=== PATIENT | male | born 1950 | race Caucasian/White ===

== ENCOUNTER 2016-06-06 08:28 | Emergency (ER) | payer MEDICARE, OTHER ==
[~2016-06-06] VITALS: Ht 190.5 cm; Wt 111.0 kg
[~2016-06-06 08:28] MED LIST: ASPI81CH3; GLUCTAB PO; PROT40TA PO; cholestero
[2016-06-06 08:30] VITALS: BP 127/99; PULSE 68; RESP 18; TEMP 97.9; O2SAT 96
[2016-06-06] MEDS ORDERED: LISI10TA3 PO (08:39)
[2016-06-06] MEDS ORDERED: OMEG5CAP PO (08:39)
[2016-06-06] MEDS ORDERED: FENO145T2 PO (08:39)
[2016-06-06] MEDS ORDERED: PANT40TA3 PO (08:39)
[2016-06-06] MEDS ORDERED: GLYB1TAB93 PO (08:39)
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
[2016-06-06 09:05] LABS: AUTOMATED NEUTROPHIL # 4.6 TH/MM3 (1.8-7.7); BASOPHIL # 0.1 TH/MM3 (0-0.2); BASOPHIL % 0.7 % (0.0-2.0); EOSINOPHIL # 0.1 TH/MM3 (0-0.4); EOSINOPHIL % 1.6 % (0.0-4.0); HEMATOCRIT 47.4 % (39.0-51.0); HEMO FLAGS DIFF FINAL; LYMPH % 35.9 % (9.0-44.0); LYMPHOCYTE # 3.1 TH/MM3 (1.0-4.8); MEAN CELL VOLUME 90.3 FL (80.0-100.0); MEAN CORPUSCULAR HEMOGLOBIN 31.3 PG (27.0-34.0); MEAN CORPUSCULAR HGB CONC 34.7 % (32.0-36.0); MONO % 8.6 % (0.0-8.0); NEUT % 53.2 % (16.0-70.0); PLATELET COUNT 321 TH/MM3 (150-450); RED BLOOD COUNT 5.25 MIL/MM3 (4.50-5.90); WHITE BLOOD COUNT 8.7 TH/MM3 (4.0-11.0)
[2016-06-06 09:21] LABS: ALKALINE PHOSPHATASE 59 U/L (45-117); ALT (GPT) 26 U/L (12-78); ANION GAP 6 MEQ/L (5-15); AST (GOT) 22 U/L (15-37); BICARBONATE 25.9 MEQ/L (21.0-32.0); BLOOD UREA NITROGEN 14 MG/DL (7-18); CHLORIDE 104 MEQ/L (98-107); GLOMERULAR FILTRATION RATE 74 ML/MIN (>89); POTASSIUM 4.8 MEQ/L (3.5-5.1); SODIUM (NA) 136 MEQ/L (136-145); TOTAL BILIRUBIN ADULT 0.5 MG/DL (0.2-1.0)
[2016-06-06 09:30] VITALS: BP 137/91; PULSE 64; RESP 18; O2SAT 97
[2016-06-06] MEDS ORDERED: TRAM50TA PO (09:33)
[2016-06-06] MEDS ORDERED: ZOFR4TAB PO (09:33)
--- NOTE | 2016-06-06 18:05 | EKG ---
Date Performed: 06/06/2016 Time Performed: 08:38:02 PTAGE: 65 years EKG: Sinus rhythm POSSIBLE INFERIOR MYOCARDIAL INFARCTION ABNORMAL ECG NO PREVIOUS TRACING DOCTOR: Serge Mendoza Interpretating Date/Time 06/06/2016 18:04:03
== END 2016-06-06 09:48 | disposition home or self-care (01) ==
LOC: NEPE 08:28
DX: S30.1XXA Contusion of abdominal wall, initial encounter (principal); R94.31 Abnormal electrocardiogram [ECG] [EKG]; K21.9 Gastro-esophageal reflux disease without esophagitis; E11.9 Type 2 diabetes mellitus without complications; H91.90 Unspecified hearing loss, unspecified ear; F17.200 Nicotine dependence, unspecified, uncomplicated; Z79.84 Long term (current) use of oral hypoglycemic drugs; V89.0XXA Person injured in unspecified motor-vehicle accident, nontraffic, initial encounter
CPT/HCPCS: 80053; 83690; 85025; 93005; 99284

== ENCOUNTER 2017-02-19 17:52 | Emergency (ER) | payer OTHER ==
[~2017-02-19] VITALS: Ht 190.5 cm; Wt 115.0 kg
[~2017-02-19 17:52] MED LIST changes: -ASPI81CH3; +FENO145T2 PO; -GLUCTAB PO; +GLYB1TAB93 PO; +LISI10TA3 PO; +OMEG5CAP PO; +PANT40TA3 PO; -PROT40TA PO; +TRAM50TA PO; +ZOFR4TAB PO; -cholestero
--- NOTE | 2017-02-19 18:50 | PD ---
HPI Chief Complaint: Diabetic Time Seen by Provider: 18:20 Travel History International Travel<30 days: No Contact w/Intl Traveler<30days: No Traveled to known affect area: No History of Present Illness HPI 66-year-old male with history of diabetes mellitus type 2 currently on metformin 500 mg daily. He reports he checked his blood sugar as usual today and millimeter read "high". This caused him to be concerned and came to the emergency department for evaluation. Patient has had 2 Accu-Cheks here the first reading 116 the second reading 120. Patient denies any medical complaint. He denies visual changes, dizziness, abdominal pain, polyuria/ polydipsia. PFSH Past Medical History Narrative Medical DM type 2 Diabetes: Yes Patient Takes Glucophage: Yes Diminished Hearing: Yes GERD: Yes Inguinal Hernia: Yes Tetanus Vaccination: Unknown Influenza Vaccination: Yes Past Surgical History Other Surgery: Yes (bilat inguinal hernia repair) Social History Alcohol Use: No Tobacco Use: Yes (1PPD ) Substance Use: No Allergies-Medications (Allergen,Severity, Reaction): Coded Allergies: No Known Allergies (Unverified , 01/13/16) Reported Meds & Prescriptions Reported Meds & Active Scripts Active Zofran (Ondansetron HCl) 4 Mg Tab 4 Mg PO Q6HR PRN Tramadol (Tramadol HCl) 50 Mg Tab 50 Mg PO Q6H PRN Reported Fish Oil 1200 mg ([place]-3 Fatty Acids) 1 Cap Cap 2 Cap PO DAILY Pantoprazole (Pantoprazole Sodium) 40 Mg Tab 40 Mg PO DAILY Fenofibrate 145 Mg Tab 145 Mg PO DAILY Lisinopril 10 Mg Tab 10 Mg PO DAILY Glyburide-Metformin 2.5-500 Mg Tab 2 Tab PO BID Take with a meal Review of Systems Except as stated in HPI: all other systems reviewed are Neg Physical Exam Narrative GENERAL: Well-nourished, well-developed patient. SKIN: Focused skin assessment warm/dry. HEAD: Normocephalic. EYES: No scleral icterus. No injection or drainage. NECK: Supple, trachea midline. No JVD or lymphadenopathy. CARDIOVASCULAR: Regular rate and rhythm without murmurs, gallops, or rubs. RESPIRATORY: Breath sounds equal bilaterally. No accessory muscle use. GASTROINTESTINAL: Abdomen soft, non-tender, nondistended. MUSCULOSKELETAL: No cyanosis, or edema. BACK: Nontender without obvious deformity. No CVA tenderness. Data Data Orders Orders Ed Discharge Order (02/19/17 18:50) MDM Medical Decision Making Medical Screen Exam Complete: Yes Emergency Medical Condition: Yes Differential Diagnosis Hyperglycemia, uncontrolled diabetes, DKA Narrative Course 66-year-old male with history of diabetes mellitus type 2 currently on metformin 500 mg daily. He reports he checked his blood sugar as usual today and millimeter read "high". This caused him to be concerned and came to the emergency department for evaluation. Patient has had 2 Accu-Cheks here the first reading 116 the second reading 120. Patient denies any medical complaint. He denies visual changes, dizziness, abdominal pain, polyuria/ polydipsia. She was instructed to continue his metformin as prescribed and obtain a new glucose monitoring. Advised to follow up with his PCP. Return precautions discussed. Patient verbalizes understanding and agrees to plan Diagnosis Primary Impression: Encounter for medical screening examination Referrals: Primary Care Physician Additional Instructions: Your blood sugars reading here in the hospital was 116. The repeat check was 120 Taking her metformin as directed. Obtained a new blood glucose monitor as we discussed. Follow-up with your primary doctor for recheck. Disposition: 01 DISCHARGE HOME Condition: Stable Josiane Aguayo Feb 19, 2017 18:50
== END 2017-02-19 18:52 | disposition home or self-care (01) ==
LOC: NEPD 17:52
DX: E11.9 Type 2 diabetes mellitus without complications (principal); K21.9 Gastro-esophageal reflux disease without esophagitis; Z79.84 Long term (current) use of oral hypoglycemic drugs; F17.200 Nicotine dependence, unspecified, uncomplicated
CPT/HCPCS: 99282